=== PATIENT | male | born 1970 | race Caucasian/White ===

== ENCOUNTER 2021-10-19 22:54 | Emergency (ER) | payer OTHER ==
[2021-10-19 23:00] VITALS: BP 140/101; PULSE 98; TEMP 98.8; BMI 29.0
[2021-10-19] MEDS ORDERED: DIPHTH,PERTUSS(ACELL),TET 0.5 ML DISP.SYRIN IM ONE ×2 (23:01→23:03)
== END 2021-10-19 23:09 | disposition home or self-care (01) ==
LOC: FER 22:54
PROC: 3E0234Z Introduction of Serum, Toxoid and Vaccine into Muscle, Percutaneous Approach (ICD-10-PCS; principal; 2021-10-19)
DX: S01.01XA Laceration without foreign body of scalp, initial encounter (principal); W22.8XXA Striking against or struck by other objects, initial encounter; Y92.9 Unspecified place or not applicable
CPT/HCPCS: 90715; 99283-25

== ENCOUNTER 2023-11-11 19:35 | Emergency (ER) | payer OTHER ==
[2023-11-11 19:57] VITALS: BP 129/93; PULSE 77; RESP 18; TEMP 97.8; BMI 27.7
[2023-11-11] MEDS ORDERED: ACETAMINOPHEN 500 MG TABLET (FP) ONE (20:14)
[2023-11-11] MEDS ORDERED: ACETAMINOPHEN 500 MG TABLET (FP) PO ONE (20:42)
== END 2023-11-11 21:05 | disposition home or self-care (01) ==
LOC: FER 19:35
DX: S00.03XA Contusion of scalp, initial encounter (principal); M54.50 Low back pain, unspecified; W07.XXXA Fall from chair, initial encounter; Y93.H9 Activity, other involving exterior property and land maintenance, building and construction; Y92.89 Other specified places as the place of occurrence of the external cause
CPT/HCPCS: 99282-25

== ENCOUNTER 2024-05-30 20:32 | Emergency (ER) | payer OTHER ==
[2024-05-30 20:44] VITALS: BP 146/93; PULSE 100; RESP 16; TEMP 98.2; BMI 27.8
[2024-05-30] MEDS ORDERED: DIPHTH,PERTUSS(ACELL),TET 0.5 ML DISP.SYRIN IM ONE (21:30)
[2024-05-30] MEDS: DIPHTH,PERTUSS(ACELL),TET 0.5 ML DISP.SYRIN IM ONE (21:33)
== END 2024-05-30 21:40 | disposition home or self-care (01) ==
LOC: FER 20:32
PROC: 0HQFXZZ Repair Right Hand Skin, External Approach (ICD-10-PCS; principal; 2024-05-30)
PROC: 3E0234Z Introduction of Serum, Toxoid and Vaccine into Muscle, Percutaneous Approach (ICD-10-PCS; 2024-05-30)
DX: S61.411A Laceration without foreign body of right hand, initial encounter (principal); W26.8XXA Contact with other sharp object(s), not elsewhere classified, initial encounter; Z23 Encounter for immunization
CPT/HCPCS: 90715; 99282-25

== ENCOUNTER 2024-06-07 19:30 | Emergency (ER) | payer OTHER ==
[2024-06-07 19:38] VITALS: BP 132/89; PULSE 78; RESP 16; TEMP 98.2; BMI 27.8
== END 2024-06-07 20:42 | disposition home or self-care (01) ==
LOC: FER 19:30
DX: Z48.02 Encounter for removal of sutures (principal)
CPT/HCPCS: 99281-25